=== PATIENT | male | born 1975 | race Caucasian/White ===

== ENCOUNTER 2017-11-22 10:21 | Emergency (ER) | payer BC ==
[2017-11-22 10:34] VITALS: BP 144/95; PULSE 83; RESP 18; TEMP 98.4
[2017-11-22] MEDS ORDERED: DIPH,PERTUS(ACELL)TETVAC-LF 0.5 ML VIAL IM ONE (11:18)
--- NOTE | 2017-11-22 11:21 | ED ---
General Adult HPI - General Chief complaint: Wound/Laceration Stated complaint: Cut on hand Time Seen by Provider: 11/22/17 11:09 Source: patient, RN notes reviewed Mode of arrival: ambulatory Limitations: no limitations - History of Present Illness Initial comments: Patient 42-year-old male who presents emergency room today with a chief complaint of laceration to the webspace between the first and second digit of the right hand. He does admit that he cut it on a bolt. States is unsure of his tetanus status. Denies any other complaints or so she did symptoms. Patient denies any recent fever, chills, shortness of breath, chest pain, back pain, abdominal pain, nausea or vomiting, numbness tingling or any other complaints. - Related Data Home Medications Medication Instructions Recorded Confirmed Fexofenadine HCl [Karmen Allergy] 180 mg PO DAILY 11/22/17 11/22/17 amLODIPine BES/OLMESARTAN MED 1 tab PO DAILY 11/22/17 11/22/17 [amLODIPine BES/OLMESARTAN MED 5-20 mg] Allergies Allergy/AdvReac Type Severity Reaction Status Date / Time No Known Allergies Allergy Verified 11/22/17 11:29 Review of Systems ROS Statement: Those systems with pertinent positive or pertinent negative responses have been documented in the HPI. ROS Other: All systems not noted in ROS Statement are negative. Past Medical History Past Medical History: Hypertension History of Any Multi-Drug Resistant Organisms: None Reported Additional Past Surgical History / Comment(s): right shoulder Past Psychological History: No Psychological Hx Reported Smoking Status: Never smoker Past Alcohol Use History: Occasional Past Drug Use History: None Reported General Exam - General Exam Comments Initial Comments: General: The patient is awake and alert, in no distress, and does not appear acutely ill. Neck: The neck is supple, there is no tenderness or JVD. Cardiovascular: There is a regular rate and rhythm. No murmur, rub or gallop is appreciated. Respiratory: Lungs are clear to auscultation, respirations are non-labored, breath sounds are equal. No wheezes, stridor, rales, or rhonchi. Musculoskeletal/skin: Patient does have a 1.5 cm linear laceration to the webspace between the first and second digit of the right hand with no active bleeding. Full range of motion. Sensation intact. Pulses 2+. Strength 5/5. Neurological: A&O x 3. CN II-XII intact, There are no obvious motor or sensory deficits. Coordination appears grossly intact. Speech is normal. Psychiatric: Normal mood and affect. Limitations: no limitations Course Vital Signs 11/22/17 10:32 Temperature 98.4 F Pulse Rate 83 Respiratory 18 Rate Blood Pressure 144/95 O2 Sat by Pulse 96 Oximetry Procedures - Procedures Initial comment: 1.5 cm laceration to the right webspace between the first and second digit. The skin was anesthetized with 1% lidocaine. The laceration was then cleansed with and irrigated with normal saline. The wound was inspected, and there was no evidence of injury to deep structures. No foreign body was noted in the wound. A total of 3 skin sutures were placed utilizing 4-0 nylon. Disposition Clinical Impression: Laceration Disposition: HOME SELF-CARE Condition: Good Instructions: Laceration (ED) Additional Instructions: Please return to the emergency room in 8-10 days to have sutures removed. Please watch for any signs of infection which may include increased pain, swelling, redness, fever or chills. Please return to emergency room for any signs of infection do occur. Please use clean soap and water over the area to prevent scabbing over your stitches. Please leave wound covered for the first 24-48 hours and then leave wound open to air. Please return to the emergency room for any other concerns. Referrals: Melly Roy MD [Primary Care Provider] - 1-2 days Time of Disposition: 11:37
== END 2017-11-22 11:53 | disposition home or self-care (01) ==
LOC: EC 10:21
DX: S61.411A Laceration without foreign body of right hand, initial encounter (principal); Z23 Encounter for immunization; I10 Essential (primary) hypertension; Z79.899 Other long term (current) drug therapy; W45.8XXA Other foreign body or object entering through skin, initial encounter
CPT/HCPCS: 12001; 90471; 90715; 99282

== ENCOUNTER 2017-12-14 09:15 | Day surgery (SDC) | payer BC ==
[2017-12-11 09:09] VITALS: BMI 28.3
[~2017-12-14 09:15] MED LIST: LACTATED RINGERS 1,000 ML IV SCH; LIDOCAINE 1% 20 ML VIAL (10MG/ML) FOR IV START INTRADERMA PRN
[2017-12-14 09:36] VITALS: TEMP 97.7
[2017-12-14] MEDS ORDERED: fentaNYL (PF) 50 MCG/ML 2 ML AMP ONE (10:03)
[2017-12-14] MEDS ORDERED: LIDOCAINE 1% INJ 10MG/ML (20 ML MDV) ONE (10:03)
[2017-12-14] MEDS ORDERED: PROPOFOL 10 MG/ML 20 ML VIAL IV ONE (10:03)
[2017-12-14] MEDS ORDERED: MIDAZOLAM 2 MG/2 ML VIAL ONE (10:03)
--- NOTE | 2017-12-14 10:32 | P.PCN ---
Date of Procedure: 12/14/17 Procedure(s) Performed: Procedure: Esophagogastroduodenoscopy and biopsy. Preoperative diagnosis: Epigastric pain and history of heartburn. Postoperative diagnosis: 1. Small sliding hiatal hernia and LA grade B distal esophagitis. 2. Mild antral gastritis and minimal duodenitis. 3. Multiple biopsies obtained from the duodenum, antrum and esophagus. Preparation and sedation: Was provided by anesthesia. Brief clinical history: The patient is a 42-year-old male who is scheduled for this evaluation because of history of epigastric pain that has been getting worse over the last year. He describes his pain to be in the epigastric area mostly after he eats. He does have history of heartburn for which she is on medical therapy. Procedure: With the patient on his left lateral decubitus position and after informed consent and adequate sedation, I passed the Olympus-GIF 160 video upper endoscope through the cricopharyngeus down the esophagus. GE junction was around 40 cm from the incisors and there was a 1-2 cm sliding hiatal hernia. There are couple distal esophageal erosions consistent with LA grade B distal esophagitis but no strictures or Suresh's esophagus. The endoscope was then passed into the stomach which was insufflated with air and inspected in detail including the retroflex view in the cardia. There was some mottling and erythema in the antrum but no ulcers or erosions. Pyloric channel did not show any ulcers. Duodenal bulb, post bulbar area and descending duodenum appeared within normal limits showing minimal erythema only. Because of his symptoms, I obtained biopsies from the duodenum, antrum and esophagus then the endoscope was withdrawn. The patient tolerated the procedure well. Plan: The patient was reassured. Will await biopsy results. He will continue antireflux diet and measures and acid suppressive therapy. Consideration can be given for further workup including workup for gallbladder disease based on his course. I will be happy to see in the office if his symptoms persist. He will follow up with you as planned.
[2017-12-14 10:52] VITALS: RESP 16
[2017-12-14 11:01] VITALS: BP 138/85; PULSE 88
== END 2017-12-14 11:25 | disposition home or self-care (01) ==
LOC: ORWHC2ENDO 09:15
DX: K29.50 Unspecified chronic gastritis without bleeding (principal); K21.0 Gastro-esophageal reflux disease with esophagitis; K29.80 Duodenitis without bleeding; K44.9 Diaphragmatic hernia without obstruction or gangrene; I10 Essential (primary) hypertension; G47.33 Obstructive sleep apnea (adult) (pediatric); Z79.899 Other long term (current) drug therapy
CPT/HCPCS: 43239; J2250; J2001; J3010; J2704; 88305

== ENCOUNTER → 2017-12-16 | Outpatient (CLI) | payer BC ==
--- NOTE | 2017-12-16 08:13 | US ---
EXAMINATION TYPE: US abdomen complete DATE OF EXAM: 12/16/2017 COMPARISON: NONE CLINICAL HISTORY: R10.13 Epigastric pain. Epigastric pain x 1 year, NPO EXAM MEASUREMENTS: Liver Length: 16.9 cm Gallbladder Wall: 0.1 cm CBD: 0.4 cm CHD: 0.4 cm Spleen: 14.2 cm Right Kidney: 12.0 x 5.3 x 6.0 cm Left Kidney: 12.0 x 5.6 x 5.9 cm Pancreas: Body and tail not well seen due to overlying bowel gas Liver: wnl Gallbladder: wnl CBD: wnl CHD: wnl Spleen: Enlarged Right Kidney: wnl Left Kidney: wnl Upper IVC: Obscured by overlying bowel gas Abd Aorta: Mid portion obscured by overlying bowel gas The liver is homogenous. The intrahepatic portion of the IVC and proximal abdominal aorta are within normal limits. There is no evidence of cholelithiasis. Common bile duct is unremarkable. The visu alized portions prominent in size of the pancreas are homogenous. The spleen is enlarged. Kidneys a re symmetric and free of hydronephrosis. No renal lesions are seen. IMPRESSION: 1. No sonographic evidence of acute cholecystitis. Given the patient's symptoms HIDA scan could be pe rformed with CCK to evaluate for biliary dyskinesia or chronic cholecystitis. 2. Splenomegaly.
== END | disposition home or self-care (01) ==
LOC: RADUSWWP 07:05
DX: R16.1 Splenomegaly, not elsewhere classified (principal)
CPT/HCPCS: 76700

== ENCOUNTER 2021-05-24 08:48 | Emergency (ER) | payer BC ==
[2021-05-24 09:01] VITALS: RESP 18; TEMP 98.3
[2021-05-24] MEDS ORDERED: DIPH,PERTUS(ACELL)TETVAC-LF 0.5 ML VIAL IM ONE (09:21)
[2021-05-24] MEDS ORDERED: MORPHINE SULFATE 4 MG/ML SYRINGE IM STA (09:21)
[2021-05-24] MEDS ORDERED: ceFAZolin 1,000 MG VIAL (IM USE) IM STA (09:21)
[2021-05-24] MEDS ORDERED: LIDOCAINE 1% INJ 10MG/ML (20 ML MDV) SQ STA (09:21)
--- NOTE | 2021-05-24 09:25 | ED ---
General Adult HPI - General Chief complaint: Extremity Injury, Upper Stated complaint: Lt Hand Lac Time Seen by Provider: 05/24/21 09:04 Source: patient, family, RN notes reviewed Mode of arrival: ambulatory Limitations: no limitations - History of Present Illness Initial comments: 46-year-old male presents to the emergency department for a chief complaint of finger injury. Patient reports that he has about a 150 pound toolbox. States he dropped this on to his second and third fingertips which were on the edge of a table. Patient states that he did initially have some bleeding. Patient states it is painful to move his fingers. Patient is not up-to-date on tetanus.Patient has no other complaints at this time including shortness of breath, chest pain, abdominal pain, nausea or vomiting, headache, or visual changes. - Related Data Home Medications Medication Instructions Recorded Confirmed Fexofenadine HCl [Karmen Allergy] 180 mg PO DAILY 11/22/17 12/14/17 amLODIPine BES/OLMESARTAN MED 1 tab PO DAILY 11/22/17 12/14/17 [amLODIPine BES/OLMESARTAN MED 5-20 mg] Previous Rx's Medication Instructions Recorded Cephalexin [Keflex] 500 mg PO Q6HR 7 Days #28 cap 05/24/21 Ibuprofen [Motrin] 600 mg PO Q6HR PRN #20 tab 05/24/21 Allergies Allergy/AdvReac Type Severity Reaction Status Date / Time No Known Allergies Allergy Verified 05/24/21 08:58 Review of Systems ROS Statement: Those systems with pertinent positive or pertinent negative responses have been documented in the HPI. ROS Other: All systems not noted in ROS Statement are negative. Past Medical History Past Medical History: GERD/Reflux, Hypertension, Sleep Apnea/CPAP/BIPAP Additional Past Medical History / Comment(s): C-PAP MACHINE.,STATES HAVING PAIN & BLOATING AFTER EATING & HEART BURN AT NIGHT. History of Any Multi-Drug Resistant Organisms: None Reported Additional Past Surgical History / Comment(s): right shoulder Past Anesthesia/Blood Transfusion Reactions: No Reported Reaction Past Psychological History: No Psychological Hx Reported Smoking Status: Never smoker Past Alcohol Use History: Occasional Past Drug Use History: None Reported - Past Family History Mother Family Medical History: No Reported History General Exam - General Exam Comments Initial Comments: Left second digit: Tenderness to the distal phalanx. Nail bed is in place however does appear to be laceration under the nail bed. cap refill is less than 2 seconds. Left third digit: Tenderness of the distal phalanx. Proximal portion of nail has avulsed. There does appear to be a laceration under the nail bed. cap refill < 2 seconds Limitations: no limitations General appearance: alert, in no apparent distress Head exam: Present: atraumatic, normocephalic, normal inspection Eye exam: Present: normal appearance, PERRL, EOMI. Absent: scleral icterus, conjunctival injection, periorbital swelling ENT exam: Present: normal exam, mucous membranes moist Neck exam: Present: normal inspection, full ROM. Absent: tenderness, meningismus, lymphadenopathy Respiratory exam: Present: normal lung sounds bilaterally. Absent: respiratory distress, wheezes, rales, rhonchi, stridor Cardiovascular Exam: Present: regular rate, normal rhythm, normal heart sounds. Absent: systolic murmur, diastolic murmur, rubs, gallop, clicks Course Vital Signs 05/24/21 08:53 Temperature 98.3 F Pulse Rate 99 Respiratory 18 Rate Blood Pressure 120/77 O2 Sat by Pulse 100 Oximetry Procedures - Laceration Laceration #1 Consent Obtained: verbal consent Indication: laceration Site: hand (2nd digit) Anesthesia Technique: nerve block Amount (mls): 4 Pre-repair: wound explored, irrigated extensively Type of Sutures: nylon Size of Sutures: 5-0 Number of Sutures: 2 Patient Tolerated Procedure: well, no complications Additional Comments: 2 sutures to suture nail bed Laceration #2 Consent Obtained: verbal consent Indication: laceration Site: hand (3rd digit) Size (cm): 2 Description: flap Depth: simple, single layer Anesthetic Used: lidocaine 1% Anesthesia Technique: nerve block Amount (mls): 4 Pre-repair: wound explored, irrigated extensively Type of Sutures: nylon (7), vicryl (3) Size of Sutures: 5-0 Number of Sutures: 10 Technique: simple, interrupted Patient Tolerated Procedure: well, no complications Medical Decision Making - Medical Decision Making Patient presents for lacerations of the left second and third digits. Patient does have nail avulsion of the left third digit. Suspected nailbed laceration of each digit. Both nails were removed. Left third digit does have a large nail bed laceration. This was repaired with absorbable sutures. There was also Ethilon sutures used for the finger lack. The nail was replaced and sutured on. The left second digit nail was removed and inspected. No large laceration of the nail bed. Nail was replaced and sutured on. Both fingers were irrigated thoroughly. X-ray of the left hand shows comminuted mildly displaced fractures of the second and third digits distal phalangeal tuft with soft tissue laceration. Findings raise concern for open fracture which is clinically evident of the left third digit. Patient was placed in finger splints. He will need to follow up with orthopedics. Referral given. Care parameters discussed. Return parameters discussed. Disposition Clinical Impression: Laceration, Open fracture of finger of left hand, Nail avulsion, finger Disposition: HOME SELF-CARE Condition: Good Instructions (If sedation given, give patient instructions): Finger Fracture (ED), Finger Laceration (ED) Additional Instructions: Please take medication as directed. Take Motrin and Tylenol for pain. If pain is severe take Tylenol 3. Rest ice and elevate the fingers. Use splint. Follow-up with orthopedics. Return to the emergency room for any worsening symptoms or signs of infection. Prescriptions: Cephalexin [Keflex] 500 mg PO Q6HR 7 Days #28 cap Ibuprofen [Motrin] 600 mg PO Q6HR PRN #20 tab PRN Reason: Pain Is patient prescribed a controlled substance at d/c from ED?: No Referrals: Melly Roy MD [Primary Care Provider] - 1-2 days Andi Madrigal DO [Doctor of Osteopathic Medicine] - 1-2 days Time of Disposition: 11:28
--- NOTE | 2021-05-24 09:45 | XR ---
EXAMINATION TYPE: XR hand complete LT DATE OF EXAM: 05/24/2021 COMPARISON: NONE HISTORY: . lac 2nd and 3rd distal phalanx. TECHNIQUE: AP, oblique, and lateral views of the left hand obtained. FINDINGS: There are comminuted fractures of the codi of the second and third digits with mild displa cement. Soft tissue irregularity of the distal second and third digits, with soft tissue gas of the t hird digit. No radiopaque foreign body. No dislocation. Joint spaces and alignment are normal. Normal mineralization. IMPRESSION: Comminuted mildly displaced fractures of the second and third digits distal phalangeal codi, with so ft tissue laceration. Findings raise concern for open fracture.
[2021-05-24] MEDS ORDERED: BACITRACIN OINT 1 EACH PACKET TOPICAL ONE (11:18)
[2021-05-24] MEDS ORDERED: ACET/COD 300 MG/30 MG STARTER PACK 6 TAB BTL PO STA (11:28)
[2021-05-24 11:51] VITALS: BP 133/78; PULSE 83
== END 2021-05-24 11:51 | disposition home or self-care (01) ==
LOC: EC 08:48
DX: S62.631B Displaced fracture of distal phalanx of left index finger, initial encounter for open fracture (principal); S62.633B Displaced fracture of distal phalanx of left middle finger, initial encounter for open fracture; K21.9 Gastro-esophageal reflux disease without esophagitis; I10 Essential (primary) hypertension; G47.30 Sleep apnea, unspecified; Z99.81 Dependence on supplemental oxygen; W27.8XXA Contact with other nonpowered hand tool, initial encounter; Z23 Encounter for immunization
CPT/HCPCS: 73130; 90715; 99283; 12002; 90471; 96372 ×3; J2270; J0690; J2001

== ENCOUNTER → 2023-10-09 | Outpatient (CLI) | payer BC ==
--- NOTE | 2023-10-09 09:00 | XR ---
EXAMINATION TYPE: XR skull limited DATE OF EXAM: 10/09/2023 8:55 AM CLINICAL INDICATION:Male, 48 years old with history of Z18.10 retained metal fragments; PHH COMPARISON: None. TECHNIQUE: Frontal and lateral views of the skull. FINDINGS: Tiny metallic densities project over the nose and lateral view. Soft tissues and osseous structures a re within normal limits. IMPRESSION: Metallic densities project over the nose and lateral view.
== END | disposition home or self-care (01) ==
LOC: RADXRMAIN 08:31
PROVIDERS: ATTEND Otolaryngology
DX: Z18.10 Retained metal fragments, unspecified (principal)
CPT/HCPCS: 70250

== ENCOUNTER → 2023-10-12 | Outpatient (CLI) | payer BC ==
--- NOTE | 2023-10-13 22:44 | MR ---
EXAMINATION TYPE: MR brain and iac wo/w con DATE OF EXAM: 10/12/2023 6:08 PM CLINICAL INDICATION:Male, 48 years old with history of R42 DIZZINESS AND GIDDINESS; PHH, Dizziness, g iddiness, constant ringing in both ears/head COMPARISON: None TECHNIQUE: Multi planar, multi sequence imaging was performed through the brain. Specialized thin s equences were obtained through the internal auditory canals. Pre-and post gadolinium sequences were obtained. MR contrast: IV Contrast: 11 cc Gadavist FINDINGS: The mustafa-white junctions, ventricular system, and cisterns appear unremarkable. Scattered foci of h igh T2 signal most pronounced in the right frontal lobe. Intensity are seen within the periventricula r white matter. Midline structures show no abnormality. Diffusion-weighted imaging shows no evidence of restricted diffusion. The susceptibility weighted images do not reveal any evidence for micro-hemo rrhage. The bone marrow signal is within normal limits. Paranasal sinuses and mastoid air cells: Mild scattered paranasal sinus disease. Visualized orbits: Orbital contents are intact. After administration of gadolinium, no abnormal enhancement is seen. The internal auditory canal sequences demonstrate no significant irregularity. The 7th cranial nerve s, 8 cranial nerves, and cerebellar pontine angles appear unremarkable. After the administration damon olinium, no abnormal enhancement is seen within the internal auditory canals. Vascular loop: None. IMPRESSION: 1. No evidence of intracranial mass nor acute/subacute CVA. 2. No evidence of internal auditory canal abnormality. 3. Nonspecific white matter changes, likely secondary to small vessel ischemic disease.
== END | disposition home or self-care (01) ==
LOC: RADMRIMAIN 17:08
PROVIDERS: ATTEND Otolaryngology
DX: G93.89 Other specified disorders of brain (principal); H93.13 Tinnitus, bilateral; R42 Dizziness and giddiness
CPT/HCPCS: 70553; A9585

== ENCOUNTER → 2024-01-05 | Outpatient (CLI) | payer BC ==
--- NOTE | 2024-01-07 14:40 | MR ---
EXAMINATION TYPE: MR knee LT wo con DATE OF EXAM: 01/05/2024 COMPARISON: NONE HISTORY: Left knee medial pain and swelling for 2 months, knee gave out, Hx of rt knee surgery. Sprai n of ACL. Sprain of MCL. Effusion. TECHNIQUE: Multiplanar, multisequence images of the knee is performed without IV contrast. FINDINGS: MEDIAL MENISCUS: Horizontal and oblique increased signal posterior horn extends to inferior articular surface. LATERAL MENISCUS: Anterior and posterior horns are intact without tear. CRUCIATE LIGAMENTS: The posterior cruciate ligament is intact and unremarkable. Anterior cruciate lig ament shows diffuse increased signal but intact fibers. COLLATERAL LIGAMENTS: The medial collateral ligament and lateral collateral ligament complex are inta ct. Some thickening and increased signal in the proximal attachment of the lateral collateral ligamen t proper. EXTENSOR MECHANISM: Visualized quadriceps and patellar tendons are intact. EFFUSION: Small size suprapatellar joint effusion. POPLITEAL CYST: No popliteal/kelsey cyst. TRICOMPARTMENT SPACES: Tricompartment joint spaces are preserved. No significant spurring is seen. CARTILAGE: Tricompartmental articular cartilage is maintained. BONE MARROW SIGNAL: No focal abnormal marrow signal is appreciated. OTHER: No additional significant abnormality is appreciated. IMPRESSION: 1. Full thickness tear posterior horn medial meniscus. 2. Chronic proximal LCL sprain injury. Intact MCL noted. 3. Small-size suprapatellar joint effusion. 4. Tendinosis/partial tearing of the anterior cruciate ligament.
== END | disposition home or self-care (01) ==
LOC: RADMRIMAIN 19:13
PROVIDERS: ATTEND Orthopaedic Surgery Sports Medicine
DX: M25.462 Effusion, left knee (principal); M23.322 Other meniscus derangements, posterior horn of medial meniscus, left knee; M23.642 Other spontaneous disruption of lateral collateral ligament of left knee; S83.512A Sprain of anterior cruciate ligament of left knee, initial encounter; S83.412A Sprain of medial collateral ligament of left knee, initial encounter; X58.XXXA Exposure to other specified factors, initial encounter; Z98.890 Other specified postprocedural states

== ENCOUNTER 2024-05-03 08:20 | Day surgery (SDC) | payer BC ==
[~2024-05-03 08:20] MED LIST changes: -LACTATED RINGERS 1,000 ML IV SCH; +LIDOCAINE 1% (10MG/ML) FOR IV START INTRADERMA PRN; -LIDOCAINE 1% 20 ML VIAL (10MG/ML) FOR IV START INTRADERMA PRN
[2024-05-03 09:02] VITALS: TEMP 98
[2024-05-03] MEDS: IV FLUID CONTINUATION 1,000 ML IV ONE (09:08)
[2024-05-03] MEDS: LACTATED RINGERS 1,000 ML IV SCH (09:08)
[2024-05-03] MEDS ORDERED: LIDOCAINE 1% INJ 10MG/ML (20 ML MDV) ONE (09:52)
[2024-05-03] MEDS ORDERED: PROPOFOL 10 MG/ML 20 ML VIAL IV ONE (09:52)
--- NOTE | 2024-05-03 10:11 | P.PCN ---
Date of Procedure: 05/03/24 Procedure(s) Performed: BRIEF HISTORY: Patient is a 49-year-old pleasant white male scheduled for an elective colonoscopy as a part of screening for colon cancer. PROCEDURE PERFORMED: Colonoscopy. PREOPERATIVE DIAGNOSIS: Screening for colon cancer. IV sedation per Anesthesia. PROCEDURE: After informed consent was obtained, the patient, was brought into the endoscopy unit. IV sedation was administered by Anesthesia under continuous monitoring. Digital rectal examination was normal. Initially the Olympus CF-160 flexible video colonoscope was then inserted in the rectum, gradually advanced into the cecum without any difficulty. Careful examination was performed as the scope was gradually being withdrawn. Ileocecal valve and the appendiceal orifice were visualized and appeared normal. Prep was good. Mucosa of the cecum, ascending colon, transverse colon, descending colon, sigmoid colon, and rectum appeared normal. Retroflexion was performed in the rectum and no lesions were seen. The patient tolerated the procedure well. IMPRESSION: Normal-appearing colon from rectum to cecum with no evidence of colorectal neoplasia. RECOMMENDATIONS: Findings of this examination were discussed with the patient as well as his family. He was advised to have repeat screening colonoscopy in 10 years.
[2024-05-03 10:16] VITALS: RESP 16
[2024-05-03 10:55] VITALS: BP 130/85; PULSE 79
== END 2024-05-03 10:54 | disposition home or self-care (01) ==
LOC: ORWHC2ENDO 08:20
PROVIDERS: ATTEND Internal Medicine Gastroenterology
DX: Z12.11 Encounter for screening for malignant neoplasm of colon (principal); I10 Essential (primary) hypertension; G47.33 Obstructive sleep apnea (adult) (pediatric); K21.9 Gastro-esophageal reflux disease without esophagitis; Z87.891 Personal history of nicotine dependence; Z79.899 Other long term (current) drug therapy
CPT/HCPCS: 45378; J2001; J2704